=== PATIENT | male | born 1930 | race Caucasian/White ===

== ENCOUNTER 2016-07-25 15:39 | Outpatient (CLI) | payer OTHER ==
[~2016-07-25] VITALS: Ht 180.3 cm; Wt 82.6 kg
[~2016-07-25 15:39] MED LIST: APIX5TAB PO; CIPR-225 PO; CIPR-226 PO; HYOS0.1217 PO; LEVO500T2 PO; MIRA50TA PO; PHEN-640 PO; PHEN200T27 PO; TAMS0.4C2 PO; WARF5TAB6 PO
[2016-07-25 15:51] VITALS: BP 145/78
[2016-07-25 16:18] LABS: BASOPHILS % (AUTO) 0 % (0-10); EOSINOPHILS # (AUTO) 0.3 10^3/uL (0.0-0.3); EOSINOPHILS % (AUTO) 5 % (0-10); LYMPHOCYTES # (AUTO) 2.3 X 10^3 (1.0-4.0); LYMPHOCYTES % (AUTO) 34 % (12-44); MEAN CORPUSCULAR HEMOGLOBIN 34 PG (25-34); MEAN CORPUSCULAR HGB CONC 34 G/DL (32-36); MEAN CORPUSCULAR VOLUME 102 FL (80-99); MEAN PLATELET VOLUME 9.6 FL (7.4-10.4); MONOCYTES # (AUTO) 0.7 X 10^3 (0.0-1.0); MONOCYTES % (AUTO) 11 % (0-12); NEUTROPHILS # (AUTO) 3.5 X 10^3 (1.8-7.8); NEUTROPHILS % (AUTO) 51 % (42-75); PLATELET COUNT 206 10^3/uL (130-400); RED BLOOD COUNT 3.67 10^6/uL (4.35-5.85); RED CELL DISTRIBUTION WIDTH 13.1 % (10.0-14.5); WHITE BLOOD COUNT 6.8 10^3/uL (4.3-11.0)
[2016-07-25 16:32] LABS: ALANINE AMINOTRANSFERASE 16 U/L (0-55); ALBUMIN 3.5 G/DL (3.2-4.5); ANION GAP 10 MMOL/L (5-14); ASPARTATE AMINO TRANSFERASE 20 U/L (5-34); BILIRUBIN,TOTAL 0.4 MG/DL (0.1-1.0); BLOOD UREA NITROGEN 14 MG/DL (7-18); BUN/CREATININE RATIO 14; CALCIUM 8.7 MG/DL (8.5-10.1); CARBON DIOXIDE 26 MMOL/L (21-32); CHLORIDE 106 MMOL/L (98-107); GFR ESTIMATED > 60; GLUCOSE 94 MG/DL (70-105); POTASSIUM 3.6 MMOL/L (3.6-5.0); SODIUM 142 MMOL/L (135-145); TOTAL PROTEIN 6.8 G/DL (6.4-8.2)
--- NOTE | 2016-07-25 16:32 | Diagnostic Imaging Report ---
INDICATION: Preoperative evaluation in patient with bladder tumor. PA and lateral views of the chest are obtained. Comparison is made to study of 07/27/2014. FINDINGS: There is bilateral air trapping. Interstitial markings are prominent in both lungs. There is no pneumothorax or consolidation. No significant pleural fluid is identified. IMPRESSION: No acute abnormality or adverse change is identified. Dictated by: Dictated on workstation # [id number]
[2016-07-26] MEDS ORDERED: TAMS0.4C98 PO (11:55)
[2016-07-26] MEDS ORDERED: DOCU-238 PO (11:55)
[2016-07-26] MEDS ORDERED: OXYB10TA6 PO (11:55)
== END 2016-07-25 16:30 | disposition home or self-care (01) ==
LOC: PREOP 15:39
PROVIDERS: ATTEND Urology
DX: Z01.810 Encounter for preprocedural cardiovascular examination (principal); Z01.811 Encounter for preprocedural respiratory examination; Z01.812 Encounter for preprocedural laboratory examination; Z11.2 Encounter for screening for other bacterial diseases; D49.4 Neoplasm of unspecified behavior of bladder
CPT/HCPCS: 36415; 71020; 80053; 85025; 87081

== ENCOUNTER 2016-07-31 06:49 | Day surgery (SDC) | payer OTHER ==
[~2016-07-31] VITALS: Ht 180.3 cm; Wt 82.6 kg
[~2016-07-31 06:49] MED LIST changes: +DOCU-238 PO; +OXYB10TA6 PO; +TAMS0.4C98 PO
[2016-07-31 07:00] VITALS: BP 144/81
--- NOTE | 2016-07-31 07:13 | Progress Note-Pre Operative ---
Pre-Operative Progress Note H&P Reviewed The H&P was reviewed, patient examined and no changes noted. Date H&P Reviewed: Jul 31, 2016 Time H&P Reviewed: 07:13 Pre-Operative Diagnosis: BLADDER TUMOR SHERINE BAPTISTE MD Jul 31, 2016 7:13 am
--- NOTE | 2016-07-31 07:14 | Progress Note-Post Operative ---
Post-Operative Progess Note Surgeon (s)/Inspection Clerk (s) Surgeon SHERINE BAPTISTE MD Inspection Clerk: N/A Pre-Operative Diagnosis BLADDER TUMOR (MEDIUM) Post-Operative Diagnosis SAME Post-Op Procedure Note Date of Procedure: Jul 31, 2016 Name of Procedure Performed: TURBT Description of the Procedure: PER DICTATION Findings of the Procedure SAME Anesthesia Type GENERAL Estimated blood loss (mL): NEGLIGIBLE Specimen(s) collected/removed BLADDER TUMOR AND BASE SHERINE BAPTISTE MD Jul 31, 2016 7:14 am
--- NOTE | 2016-07-31 07:15 | Discharge Inst-Urology ---
Discharge Inst-Urology Discharge Medications New, Converted, or Re-newed RX: RX on Chart Patient Instructions/Follow Up Plan Please make appointment to been seen in office in 2 weeks. Increase oral fluids for 48 hours and then as needed. Diet and Activity as tolerated. If questions or concerns contact your physician Or seek help at emergency department. SHERINE BAPTISTE MD Jul 31, 2016 7:15 am
[2016-07-31] MEDS ORDERED: cefTRIAXone 1 GM/NS 50 ML IVPB IV ONE ×2 (07:30)
[2016-07-31] MEDS ORDERED: CATHETER FLUSH 10 ML SYR IV PRN (07:30)
[2016-07-31] MEDS ORDERED: LACTATED RINGERS 1,000 ML IV PRN (07:33)
[2016-07-31] MEDS ORDERED: LACTATED RINGERS 1,000 ML IV ONE (08:29)
[2016-07-31] MEDS ORDERED: proPOfol 200 MG/20 ML (DIPRIVAN) VIAL IV ONE (08:29)
[2016-07-31] MEDS ORDERED: MIDAZOLAM 2 MG/2 ML (VERSED) VIAL ONE (08:29)
[2016-07-31] MEDS ORDERED: ROCURONIUM 50 MG/5 ML (ZEMURON) VIAL IV ONE (08:29)
[2016-07-31] MEDS ORDERED: ONDANSETRON 4 MG/2 ML (SDV) Z0FRAN ONE (08:29)
[2016-07-31] MEDS ORDERED: LIDOCAINE PF 2% 10 ML (XYLOCAINE) AMP ONE (08:29)
[2016-07-31] MEDS ORDERED: fentaNYL INJECTION 100 MCG/2 ML AMP ONE (08:29)
[2016-07-31] MEDS ORDERED: NEOSTIGMINE (BLOXIVERZ ) 1 MG/1ML 10 ML VIAL ONE (09:23)
[2016-07-31] MEDS ORDERED: GLYCOPYRROLATE 0.2 MG/ML (ROBINUL) 2 ML VIAL ONE (09:23)
[2016-07-31] MEDS ORDERED: SEVOFLURANE (ULTANE) 15 ML INHAL SOLN ONE (09:23)
[2016-07-31] MEDS ORDERED: morphine INJ 10 MG/ML 1ML (SYR OR VIAL) IVP PRN (10:00)
[2016-07-31] MEDS ORDERED: ONDANSETRON 4 MG/2 ML (SDV) Z0FRAN IVP PRN (10:00)
--- NOTE | 2016-07-31 10:00 | OPERATIVE REPORT ---
PROCEDURE PHYSICIAN: SHERINE BAPTISTE DATE OF PROCEDURE: 07/31/2016 PREOPERATIVE DIAGNOSIS: Bladder tumor "medium". POSTOPERATIVE DIAGNOSIS: Bladder tumor "medium". OPERATION: Transurethral resection of bladder tumor. SURGEON: Dr. Baptiste. ANESTHESIA: General. COMPLICATIONS: None. PROCEDURE: Under satisfactory general anesthesia, the patient in lithotomy position, the genitalia were prepped and draped in usual sterile fashion. Resectoscope was introduced after dilating the urethra with Janice sound to number 30 Finnish easily. A 27-Finnish [place] resectoscope was used. Again, visualized a single nodular area in the posterior lateral wall of the bladder, where the previous tumor was resected. It was completely resected including the base with it. Bleeders were cauterized, resection was complete and hemostasis was complete. There was no further bladder tumor. The ureteric orifices were intact with clear efflux. The resectoscope was removed after emptying the bladder. There was no need for catheter. The patient tolerated the procedure and anesthesia well and was sent to recovery room in stable condition. Estimated blood loss negligible. Job ID: [id number] Dictated Date: 07/31/2016 09:46:30 Artist Blacksmith Date: 07/31/2016 09:56:51 / tbk
[2016-07-31 10:40] VITALS: BP 140/69
[2016-07-31 11:10] VITALS: BP 125/69
[2016-07-31] MEDS ORDERED: PHEN-640 PO (11:33)
[2016-07-31] MEDS ORDERED: HYDR-3729 PO (11:33)
[2016-07-31] MEDS ORDERED: LEVO500T2 PO (11:33)
[2016-07-31 11:40] VITALS: BP 134/71
[2016-07-31 11:57] VITALS: BP 134/71
== END 2016-07-31 11:57 | disposition home or self-care (01) ==
LOC: SDC 06:49
PROVIDERS: ATTEND Urology
DX: D49.4 Neoplasm of unspecified behavior of bladder (principal)
CPT/HCPCS: 88305

== ENCOUNTER 2016-12-03 08:30 | Outpatient (CLI) | payer OTHER ==
[~2016-12-03] VITALS: Ht 180.3 cm; Wt 82.6 kg
[~2016-12-03 08:30] MED LIST changes: +HYDR-3729 PO
== END 2016-12-03 09:17 ==
LOC: PREOP 08:30
PROVIDERS: ATTEND Urology
DX: Z01.818 Encounter for other preprocedural examination (principal); D49.4 Neoplasm of unspecified behavior of bladder

== ENCOUNTER 2016-12-10 07:55 | Day surgery (SDC) | payer OTHER ==
[~2016-12-10] VITALS: Ht 180.3 cm; Wt 82.6 kg
--- NOTE | 2016-12-10 07:06 | Progress Note-Pre Operative ---
Pre-Operative Progress Note H&P Reviewed The H&P was reviewed, patient examined and no changes noted. Date Seen by Provider: Dec 10, 2016 Time Seen by Provider: 07:05 Date H&P Reviewed: Dec 10, 2016 Time H&P Reviewed: 07:05 Pre-Operative Diagnosis: MEDIUM BLADDER TUMOR ROOF AND SMALL BLADDER TUMOR POSTERIOR WALL SHERINE BAPTISTE MD Dec 10, 2016 7:06 am
[2016-12-10] MEDS ORDERED: ROCURONIUM 50 MG/5 ML (ZEMURON) VIAL IV ONE (08:02)
[2016-12-10] MEDS ORDERED: SEVOFLURANE (ULTANE) 15 ML INHAL SOLN ONE ×2 (08:02→08:53)
[2016-12-10] MEDS ORDERED: proPOfol 200 MG/20 ML (DIPRIVAN) VIAL IV ONE (08:02)
[2016-12-10] MEDS ORDERED: LACTATED RINGERS 1,000 ML IV ONE (08:02)
[2016-12-10] MEDS ORDERED: MIDAZOLAM 2 MG/2 ML (VERSED) VIAL ONE (08:02)
[2016-12-10] MEDS ORDERED: LIDOCAINE PF 2% 5 ML (XYLOCAINE) VIAL ONE (08:02)
[2016-12-10] MEDS ORDERED: fentaNYL INJECTION 100 MCG/2 ML AMP ONE (08:02)
[2016-12-10] MEDS ORDERED: LACTATED RINGERS 1,000 ML IV PRN (08:13)
[2016-12-10] MEDS ORDERED: cefTRIAXone 1 GM/NS 50 ML IVPB IV ONE ×2 (08:15)
[2016-12-10] MEDS ORDERED: POLY17PO6 PO (08:34)
[2016-12-10 08:36] VITALS: BP 175/93
--- NOTE | 2016-12-10 09:09 | Progress Note-Post Operative ---
Post-Operative Progess Note Surgeon (s)/Nuclear Scientist (s) Surgeon SHERINE BAPTISTE MD Nuclear Scientist: N/A Pre-Operative Diagnosis MEDIUM BLADDER TUMOR ROOF AND SMALL BLADDER TUMOR POSTERIOR WALL Post-Operative Diagnosis SAME Procedure & Operative Findings Date of Procedure 12/10/16 Procedure Performed/Findings TURBT Anesthesia Type GENERAL Estimated Blood Loss Estimated blood loss (mL): NEGLIGIBLE Specimens/Packing Specimens Removed BLADDER CHIPS AND BASE Packing: N/A SHERINE BAPTISTE MD Dec 10, 2016 9:09 am
--- NOTE | 2016-12-10 09:12 | Discharge Inst-Urology ---
Discharge Inst-Urology Discharge Medications New, Converted, or Re-newed RX: RX on Chart Patient Instructions/Follow Up Plan Please make appointment to been seen in office in 2 weeks. In 48hrs, if no bleeding, may resume ASA Increase oral fluids for 48 hours and then as needed. Diet and Activity as tolerated. If questions or concerns contact your physician Or seek help at emergency department. SHERINE BAPTISTE MD Dec 10, 2016 9:12 am
[2016-12-10 09:55] VITALS: BP 143/87
[2016-12-10] MEDS ORDERED: PHEN-640 PO (10:11)
[2016-12-10] MEDS ORDERED: CIPR-225 PO (10:11)
[2016-12-10 10:30] VITALS: BP 148/85
[2016-12-10 11:15] VITALS: BP 148/85
--- NOTE | 2016-12-10 18:37 | OPERATIVE REPORT ---
DATE OF SERVICE: 12/10/2016 PREOPERATIVE DIAGNOSIS: Medium bladder tumor of the roof and smaller bladder tumor posterior wall. POSTOPERATIVE DIAGNOSIS: Medium bladder tumor of the roof and smaller bladder tumor posterior wall. OPERATION PERFORMED: Transurethral resection of the bladder tumor. SURGEON: SHERINE BAPTISTE MD ANESTHESIA: General. COMPLICATIONS: None. PROCEDURE: Under satisfactory general anesthesia, the patient in lithotomy position, genitalia prepped and draped in the usual sterile fashion. Jacob scope was introduced into the bladder. At first, we took care of that superficial small bladder tumor of the posterior wall. It shelled easily off the bladder wall. The base was cauterized. Then attention was directed to the median bladder tumor that was in the roof of the bladder, which of course makes it more technically demanding, so I went ahead and resected the tumor and then obtained a couple of bites from the base of the tumor, taking care not to go to deep and perforate the bladder. There was hardly any bleeding, a couple of bleeders were cauterized. There was no further bladder tumor. The bladder was evacuated and the resectoscope was removed. The patient tolerated the procedure and anesthesia well, was sent to recovery room in stable condition. PLAN: BCG for 6 weeks and then maintenance BCG after that and then followup cystoscopies. The plan was fully explained to the and previously to the patient. Job ID: [id number] DocumentID: [id number] Dictated Date: 12/10/2016 09:14:30 Leather Stitcher Date: 12/10/2016 11:25:19 Dictated By: SHERINE BAPTISTE MD [facility]
== END 2016-12-10 11:30 | disposition home or self-care (01) ==
LOC: SDC 07:55
PROVIDERS: ATTEND Urology
DX: C67.9 Malignant neoplasm of bladder, unspecified (principal); Z86.718 Personal history of other venous thrombosis and embolism; Z79.899 Other long term (current) drug therapy; Z11.2 Encounter for screening for other bacterial diseases
CPT/HCPCS: 87081